=== PATIENT | female | born 1995 | race Caucasian/White ===

== ENCOUNTER 2018-05-27 12:09 | Inpatient (IN) | payer MEDICAID ==
[~2018-05-27] VITALS: Ht 157.5 cm; Wt 82.6 kg
[2018-05-27] MEDS ORDERED: PREN-127 PO (15:53)
[2018-05-27 22:56] VITALS: BP 115/55
--- NOTE | 2018-05-28 00:22 | History & Physical ---
History of Present Illness Age of Patient: 22 : 1 Para or TPAL: 0 EDC per LMP: May 27, 2018 Estimated Gestational Age: 40 Chief Complaint labor History of Present Illness Presents with complaint of contractions. Was seen in office today and exam was 3 cm and 80%. uncomplicated but pt was transfer of care at 37 weeks from [facility] [place] program. GBS negative and O pos. Past Medical, Surgical, Family and Obstetric Histories reviewed. Please see ACOG chart. History Allergies: Coded Allergies: No Known Drug Allergies (Unverified , 10/22/17) Med Rec Home Meds Reported Medications Vits W-Ca,Fe,Fa(<1MG) ( VITAMINS) 1 Each Tablet, 1 EACH PO DAILY, TAB 05/27/18 Review of Systems All Systems Reviewed/Normal: Yes, Except as Noted Exam General Exam Vital Signs Vital Signs Date Time Temp Pulse Resp B/P (MAP) Pulse Ox O2 Delivery O2 Flow Rate FiO2 05/27/18 22:56 98.3 92 20 115/55 (75) 96 Room Air General Apperance: Alert/Awake/No Acute Distress Neuro: No Gross deficits Eyes: Normal Extraocular Movement & Vison Cardiovascular: Regular Rate and Rhythm Respiratory: No Respiratory Distress Abdomen: Soft, Non-Tender, Non-Distended, Gravid - Non-Tender Integumentary: Skin Intact without Lesions or Rash Psychological: Alert & Oriented X3, Appropriate Mood & Affect Cervical Dialation: 3 Cervical Effacement (%): 80 Cervical Consistency: Soft Cervical Position: Anterior Station: -2 Presentation: Vertex Fetus Heart Tone Variabilty: Moderate FHT Accelerations: 15X15 FHT Category: I Medical Decision Making VTE Prophylasis: Adult Deep Vein Thrombosis/Pulmonary: No Pharmacological Contraindicati: Pt at Low Risk for VTE Mechanical Contraindications: Pt at Low Risk for VTE Assessment and 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
[2018-05-28] MEDS ORDERED: OXYTOCIN 30 UNIT/D5LR 500 ML 500 ML IV PRN ×2 (00:36)
[2018-05-28] MEDS ORDERED: FAMOTIDINE(*) 20MG/50ML PREMIX 50 ML IVPB PRN (00:36)
[2018-05-28] MEDS: LR(*) 1000 ML BAG 1,000 ML IV SCH ×3 (00:36→07:55)
[2018-05-28] MEDS ORDERED: TERBUTALINE SULF 1 MG/ML VIAL IVP PRN (00:40)
[2018-05-28] MEDS ORDERED: LIDOCAINE/SOD BICARB 8.4% SYR SC PRN (00:40)
[2018-05-28] MEDS ORDERED: METOCLOPRAMIDE 10 MG/2 ML SDV IVP PRN (00:40)
[2018-05-28] MEDS ORDERED: FLUSH 10 ML SYR IVP PRN (00:40)
[2018-05-28] MEDS ORDERED: cefOXitin/DEX(*) 2GM/50ML PREM 50 ML IVPB PRN (00:40)
[2018-05-28] MEDS ORDERED: fentaNYL CITR 100 MCG/2 ML AMP IVP PRN (00:40)
[2018-05-28] MEDS ORDERED: LIDOCAINE 1% LOCAL 300 MG/30ML INJ PRN (00:40)
[2018-05-28 01:27] LABS: PLATELET COUNT, AUTOMATED 149 K/uL (150-450)
[2018-05-28] MEDS ORDERED: LIDO/EPI 2% MPF 1:200,000 20ML EPI PRN (03:25)
[2018-05-28] MEDS ORDERED: fentaNYL CITR 100 MCG/2 ML AMP IT PRN (03:25)
[2018-05-28] MEDS ORDERED: LIDOCAINE/PF 2% 200MG/10ML AMP 200 MG/10 ML AMPUL EPI PRN (03:25)
[2018-05-28] MEDS ORDERED: ePHEDrine 25 MG/5 ML DISP.SYR IVP PRN (03:25)
[2018-05-28] MEDS ORDERED: FENTANYL/ROPIVACAINE 100 ML BAG EPI PRN (03:25)
[2018-05-28] MEDS ORDERED: BUPIVACAINE 0.25% MPF INJ EPI PRN (03:25)
[2018-05-28] MEDS ORDERED: BUPIVACAINE 0.5% INJ 30ML VIAL EPI PRN (03:25)
[2018-05-28] MEDS ORDERED: EPIDURAL KEYS XX PRN (03:25)
--- NOTE | 2018-05-28 03:38 | Anesthesia OB Pre-Anes Eval ---
History of Present Illness Anesthesia Start Date: May 28, 2018 Anesthesia Start Time: 03:40 OB Anesthesia Diagnosis: spontaneous labor Complications: None known EDC: May 27, 2018 : 1 Para: 0 Vital Signs: Vital Signs Date Time Temp Pulse Resp B/P (MAP) Pulse Ox O2 Delivery O2 Flow Rate FiO2 05/27/18 22:56 98.3 92 20 115/55 (75) 96 Room Air Pain Ratin Heart Tones: WNL Result Diagram: 05/28/18 0112 Height (Inches): 62.00 Weight (Pounds): 182 Past Medical History Medical History: no pertinent history Surgical History: no surgical history Attended Childbirth Classes?: No Hx Anesthesia Reactions: No Hx Family Anesthesia Reaction: No Current Medications: pitocin Home Meds Reported Medications Vits W-Ca,Fe,Fa(<1MG) ( VITAMINS) 1 Each Tablet, 1 EACH PO DAILY, TAB 05/27/18 Allergies: Coded Allergies: No Known Drug Allergies (Unverified , 10/22/17) Anesthesia OB ROS Neurological: No migraines/headaches, No seizures, No neuropathy Eyes ROS: contacts out, other (wearing glasses) ENT: Denies Tooth caps, Denies Loose teeth, Denies Chipped teeth, Denies Dentures, Denies Bridges, Denies Retainers, Denies Veneers, Denies Implants, Denies Tongue ring Pulmonary: No asthma, No smoker (pks/day/yrs) Airway Class: ll Cardiovascular ROS: No edema, No arrhythmia GI ROS: clear liquids Last Solids Date: May 27, 2018 Last Solids Time: 17:00 ROS: No Herpes, No STD(s), No Liver Disease, No Renal Disease Endocrine ROS: No diabetes, No gestational diabetes, No thyroid disorder Musculoskeletal ROS: No low back pain, No low back injury, No scoliosis ASA Classification: 2 Assessment and Plan Anesthesia Plan: CSE Assessment Past Medical, Surgical, Family and Obstetric Histories reviewed. Please see ACOG chart. Epidural anesthesia risks, complications and benefits explained to patient's satisfaction for labor and vaginal delivery and/or section. General anesthesia risks and benefits explained to patient's satisfaction. Pt. states she understands Malagasy and what has been explained to her. RAJESH SRINIVASAN CRNA May 28, 2018 03:38
--- NOTE | 2018-05-28 04:58 | Procedure Note ---
Anesthetic Placement Note Anesthesia Plan: CSE Permit for Anesthesia Signed: Yes Anesthesia Technique: Patient Sitting Anesthesia Prep: Chlorhexidine Interspace: L 3-4 Local Anesthetic: 1% Lidocaine, 25 Gauge Needle Amount Local - cc's: 3 Anesthesia Needle: 17g Touhy/Schliff Anesthesia Attempts: 1 Loss of Resistance: Air Depth of JESSIE (cm): 6 Epidural Needle Placement: No CSF, No Blood, No Parasthesia Intrathecal Needle: 27 Gauge Pencan Cerebral Spinal Fluid: No Catheter Insertion (cm): 8 Catheter Type: Ervin - Spring Wound Epidural Dressing: Tegaderm, Tape, Adhesive [place]ton Anesthesia Tray: Lot Number ([id number]), Expiration Date (2018-09-24), Reference Number ([id number]) Anesthesia Medications: Epidural Test Dose: 1.5 Lido/Epi (1:200,000), Dose - mL (3), Time (0401), Negative Epidural Loading Dose: 0.2% Ropivicaine, With Fentanyl 2mcg/ml, Dose - ml (4), Time (0421), Other (Fentenyl 65 mcgs) Epidural Infusion: 0.2% Ropivicaine, With Fentanyl 2mcg/ml, Start Time: (0421) , Other Epidural Pump Setting: Bolus Dose - mL (5), Lockout - Minutes (20), Maintenance Rate - mL/hr (5), Maximum per Hour - mL (20) Complications: None Comment: No CSF when intrathecal needle inserted thru epidural needle. Intrathecal needle removed and 2 ml NS flushed. Epidural catheter then threaded easily and then taped securely. Negative test dose. RAJESH SRINIVASAN CRNA May 28, 2018 04:58
--- NOTE | 2018-05-28 05:00 | Anesthesia Progress Note ---
Progress/Maintenance Anesthesia Note Date: May 28, 2018 Anesthesia Note Time: 04:50 Pain Intensity: 0 Pump: On Pump Rate (ML/HR): 5 Sensory Level: T-12 Motor Level: Bending Knees-Bilateral Dilatation: 6 Position: Right, Tilt Assessment and Plan Assessment Pt. does not appear to notice contractions. Encouraged to sleep. RAJESH SRINIVASAN CRNA May 28, 2018 05:00
[2018-05-28] MEDS ORDERED: ONDANSETRON 4 MG/2 ML VIAL IVP PRN (06:35)
[2018-05-28] MEDS ORDERED: ONDANSETRON 4 MG/2 ML VIAL ONE (06:45)
--- NOTE | 2018-05-28 09:46 | Anesthesia Progress Note ---
Progress/Maintenance Anesthesia Note Date: May 28, 2018 Anesthesia Note Time: 09:50 Pain Intensity: 0 Pump: Off Sensory Level: T-12 Motor Level: Bending Knees-Bilateral Dilatation: 10 Position: Semi-Fowlers Assessment and Plan Assessment No further medication was given.. Excellent tolerance of delivery and repair. Empty syringe attached to epidural catheter. RN agrees to remove with ambulation. Patient instructed the first ambulation is to be with help of nursing staff. Instructed to preform deep knee bends at bedside before walking. Anesthesia Stop Day: May 28, 2018 Anesthesia Stop Time: 10:00 RAJESH SRINIVASAN CRNA May 28, 2018 09:46
[2018-05-28] MEDS ORDERED: BENZOCAINE 20% 60 ML BTL TP PRN (10:10)
[2018-05-28] MEDS ORDERED: GLYCERIN/WITCH HAZEL LEAF 1 PK TOP PRN (10:10)
[2018-05-28] MEDS ORDERED: HYDROCORTISONE 2.5% CR 30GM TB PR PRN (10:10)
[2018-05-28] MEDS ORDERED: INFLUENZA VIRUS VAC 0.5 ML SYR IM ONLY ONE (10:10)
[2018-05-28] MEDS ORDERED: MAGNESIUM HYDROXIDE* 30ML UDCP PO PRN (10:10)
--- NOTE | 2018-05-28 10:21 | OB Delivery Note ---
Delivery Note Vaginal Delivery Type: Spont. Vaginal Delivery Delivery Date: May 28, 2018 Delivery Time: 09:32 Estimated Gestational Age(wks): 40 Delivery Anesthesia: Epidural Sex: Male Weight (gms): 3676 Apgars: 1 Minute (8), 5 Minute (9) Repair Needed: Laceration, 2nd Degree Estimated Blood Loss: 300 Delivery Complications: Laceration Notes: Presented in active labor, 4 cm dilated. Normal progression to complete and pushing effectively. Delivered spontaneously over second degree laceration. Placenta spontaneous and intact. Uterus massaged firm. Repair with 2-0 Chromic without complication. Inking Machine Tender in Attendence: No Copies to: TAD WIN MD, TRAVIS MD May 28, 2018 10:20
[2018-05-28] MEDS: IBUPROFEN 800 MG TAB PO SCH ×2 (11:55→20:59)
[2018-05-28] MEDS: LANOLIN OINT 7 GM TUBE TP PRN (11:56)
[2018-05-28 12:50] VITALS: BP 103/59
[2018-05-28 14:15] VITALS: BP 102/54
[2018-05-28 17:55] VITALS: BP 106/58
[2018-05-28 18:10] VITALS: BP 100/55
[2018-05-28 18:15] VITALS: BP 107/59
[2018-05-28 18:35] VITALS: BP 105/62
[2018-05-28] MEDS: DOCUSATE CALCIUM 240 MG CAP PO SCH (20:59)
[2018-05-28] MEDS: APAP/HYDROCODONE 325/5 TAB PO PRN (21:23)
--- NOTE | 2018-05-28 23:01 | OB/GYN Progress Note ---
OB Subjective Progress Notes Subjective Pt having difficulty ambulating. Very dizzy and even passes out. Doesn't want to get up to go to the bathroom. Desires to have catheter. Denies heavy bleeding. GI: NEG Nausea, NEG Vomiting, NEG Flatus, NEG Bowel Movement : Voiding Well (straight cath only) Pain: Mild Neurological: No Headache, No Other Eyes: No Visual Disturbances OB Objective Physical Exam Vital Signs Date Time Temp Pulse Resp B/P (MAP) Pulse Ox O2 Delivery O2 Flow Rate FiO2 05/28/18 18:35 78 105/62 (76) 05/28/18 18:10 18 96 05/28/18 17:55 98.6 Room Air Intake and Output 05/29/18 07:00 Intake Total 3103 ml Output Total 800 ml Balance 2303 ml Intake IV Total 3103 ml Output Urine Total 800 ml # Voids 1 General Appearance: Alert/Awake/No Acute Distress Neurological: No Gross deficits Eyes: Normal Extraocular Movement & Vison Cardiovascular: Normal Rhythm & Peripheral Pulses Respiratory: No Respiratory Distress Abdomen: Soft, Non-Tender, Non-Distended, Fundus Firm : Normal Musculoskeletal: No Weakness/Pain Integumentary: Skin Intact without Lesions or Rash Psychological: Alert & Oriented X3, Appropriate Mood & Affect Result Diagram: 05/28/187 Assessment and Plan 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 Continues to vagal while in the bathroom. H&H from 1800 9.4/27, 2245=9.7/28. No concern for expanding hematoma. Will change pain medication from Dilaudid to [place]. REBECCA HOOKS DO May 28, 2018 23:01
[2018-05-29] VITALS (8 sets, daily range): BP systolic 94–109; BP diastolic 53–59
[2018-05-29] MEDS: ACETAMINOPHEN 325 MG TAB PO PRN ×2 (03:33→10:12)
[2018-05-29] MEDS: IBUPROFEN 800 MG TAB PO SCH ×3 (05:38→20:37)
[2018-05-29] MEDS: DOCUSATE CALCIUM 240 MG CAP PO SCH ×2 (09:10→20:37)
--- NOTE | 2018-05-29 10:35 | Anesthesia Post Eval Note ---
Anesthesia Post Eval Note Vital Signs Date Time Temp Pulse Resp B/P (MAP) Pulse Ox O2 Delivery O2 Flow Rate FiO2 05/29/18 03:12 97.3 111 18 109/59 (76) 05/28/18 18:10 96 05/28/18 17:55 Room Air Pt able to participate in Eval: Yes Cardiovascular Status: Satisfactory Respiratory Status: Satisfactory Pain Managment: Unsatisfactory PO Nausea/Vomiting: Satisfactory Temperature Management: Satisfactory Mental Status: Satisfactory Post-Op Hydration Status: Satisfactory, Tolerating PO Well, Voiding w/o Difficulty Anesthesia Type: CSE Anesthesia Tolerance: RN reports that pt. has a headache. when talking to pt., she is slow to verbalize and not very descriptive about her headache. Lowered head of bed and instructed pt. to observe for improvement of WEBB. RAJESH SRINIVASAN CRNA May 29, 2018 10:35
--- NOTE | 2018-05-29 10:53 | OB/GYN Progress Note ---
OB Subjective Progress Notes GI: NEG Nausea : Voiding Well Pain: Mild Neurological: Headache (relieved with medication) OB Objective Physical Exam Vital Signs Date Time Temp Pulse Resp B/P (MAP) Pulse Ox O2 Delivery O2 Flow Rate FiO2 05/29/18 03:12 97.3 111 18 109/59 (76) 05/28/18 18:10 96 05/28/18 17:55 Room Air General Appearance: Alert/Awake/No Acute Distress Neurological: No Gross deficits Eyes: Normal Extraocular Movement & Vison Cardiovascular: Normal Rhythm & Peripheral Pulses, Regular Rate and Rhythm Respiratory: No Respiratory Distress, Clear to Auscultation Abdomen: Soft, Non-Tender, Non-Distended, Fundus Firm : Normal Musculoskeletal: No Weakness/Pain Integumentary: Skin Intact without Lesions or Rash Psychological: Alert & Oriented X3, Appropriate Mood & Affect Result Diagram: 05/28/18 4746 Assessment and Plan 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 H/H remained stable. Home today. F/U at 6 weeks. TAD WIN MD May 29, 2018 10:53
[2018-05-29] MEDS ORDERED: LOR5/325 PO (10:58)
[2018-05-29] MEDS ORDERED: IBUP800T37 PO (10:58)
[2018-05-30 00:55] VITALS: BP 97/50
[2018-05-30] MEDS: LANOLIN OINT 7 GM TUBE TP PRN (00:57)
[2018-05-30] MEDS: IBUPROFEN 800 MG TAB PO SCH ×2 (03:36→14:36)
[2018-05-30] MEDS: APAP/HYDROCODONE 325/5 TAB PO PRN (05:33)
[2018-05-30 07:55] VITALS: BP 108/60
[2018-05-30] MEDS ORDERED: DIPHTH/TETANUS/ACEL. PERTUSSIS IM ONLY ONE (09:00)
[2018-05-30] MEDS ORDERED: MEASLES,MUMP,RUBELLA VAC 0.5ML SUBQ ONE (09:00)
[2018-05-30] MEDS ORDERED: ACETA/BUTAL/CAFF 325/50/40 TAB PO PRN (10:00)
--- NOTE | 2018-05-30 10:03 | OB/GYN Progress Note ---
OB Subjective Progress Notes Subjective Reports headache worse with ambulation which also causes ringing in the ears; better when lying down. GI: NEG Nausea : Voiding Well Pain: Mild Neurological: Headache OB Objective Physical Exam Vital Signs Date Time Temp Pulse Resp B/P (MAP) Pulse Ox O2 Delivery O2 Flow Rate FiO2 05/30/18 07:55 98.6 85 16 108/60 (76) 05/30/18 00:55 Room Air 05/29/18 16:05 94 General Appearance: Alert/Awake/No Acute Distress Neurological: No Gross deficits Eyes: Normal Extraocular Movement & Vison Cardiovascular: Normal Rhythm & Peripheral Pulses, Regular Rate and Rhythm Respiratory: No Respiratory Distress, Clear to Auscultation Abdomen: Soft, Non-Tender, Non-Distended, Fundus Firm : Normal Musculoskeletal: No Weakness/Pain Integumentary: Skin Intact without Lesions or Rash Psychological: Alert & Oriented X3, Appropriate Mood & Affect Result Diagram: 05/28/18 8089 Assessment and Plan Problems: (1) Normal labor (2) 40 weeks gestation of (3) care following vaginal delivery (4) Headache Assessment & Plan: Will 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 Problem Qualifiers (1) Headache: Headache type: unspecified Headache chronicity pattern: episodic headache Intractability: not intractable Qualified Codes: R51 - Headache TAD WIN MD May 30, 2018 10:03
[2018-05-30 11:10] VITALS: BP 109/58
[2018-05-30] MEDS: DOCUSATE CALCIUM 240 MG CAP PO SCH (11:16)
[2018-05-30] MEDS ORDERED: BUTA1TAB14 PO ×2 (12:14→12:16)
--- NOTE | 2018-05-30 13:02 | Anesthesia Progress Note ---
Progress/Maintenance Anesthesia Note Date: May 30, 2018 Anesthesia Note Time: 11:30 Assessment and Plan Assessment Upon entering room, found pt sitting up (90 degrees) in bed, smiling and and visiting with family. Questioned pt. about her headache. She states is not "strong". Thoroughly explained to pt and her family, description and causes of PDPHA. Also thoroughly explained treatment with blood patch. Risks with blood patch, including discomfort, infection and further dura puncture, thoroughly explained. Abdominal binder applied. Pt. has recently taken oral pain medication. Yesterday, her headache was relieve by ibuprofen. Pt. states when she ambulates, her headache increases along with becoming " dizzy and eyes get dark". Headache has been very intermittent. Difficult to assess if cause if from PDPHA or from decreased H&H. Pt. is wanting to be discharged. Agrees to notify Physician if headache continues or increases in strength after discharge. Called placed to Dr. Rider and discussed assessment of pt. and instructions that were given to her. RAJESH SRINIVASAN CRNA May 30, 2018 13:02
[2018-05-30 14:39] VITALS: BP 123/60
== END 2018-05-30 16:43 | disposition home or self-care (01) | DRG 775 ==
LOC: OB 21:14 → OBSVTOIN 21:14
PROVIDERS: ADMIT Obstetrics & Gynecology; ATTEND Obstetrics & Gynecology
PROC: 10E0XZZ Delivery of Products of Conception, External Approach (ICD-10-PCS; principal; 2018-05-27)
PROC: 0KQM0ZZ Repair Perineum Muscle, Open Approach (ICD-10-PCS; 2018-05-27)
DX: O70.1 Second degree perineal laceration during delivery (principal); Z37.0 Single live birth; Z3A.40 40 weeks gestation of pregnancy
CPT/HCPCS: 36415; 85014; 85018; 85025; 86850; 86900; 86901; J2405; J2590; J3010; J3490; J7120